=== PATIENT | male | born 1990 | race American Indian/Alaskan Native ===

== ENCOUNTER 2018-05-29 02:57 | Emergency (ER) | payer OTHER ==
[2018-05-29 03:27] VITALS: BP 133/73
[2018-05-29] MEDS ORDERED: MOTRIN ONE (05:27)
[2018-05-29] MEDS ORDERED: FLEXERIL ONE (05:27)
[2018-05-29] MEDS ORDERED: FLEXERIL PO ONE (05:31)
[2018-05-29] MEDS ORDERED: MOTRIN PO ONE (05:31)
[2018-05-29] MEDS ORDERED: TYLENOL PO ONE (07:46)
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
--- NOTE | 2018-05-29 09:45 | XRay Report ---
LUMBOSACRAL SPINE, 3 VIEWS: History: Back pain Findings: The vertebral bodies, disk spaces and posterior elements are intact. No compression deformity or malalignment. The SI joints are symmetric and unremarkable. Impression: 1. No evidence for acute injury to the lumbar spine.
--- NOTE | 2018-05-29 09:47 | XRay Report ---
RIGHT ANKLE, 3 views: History: right ankle pain. Bone mineralization is normal. No acute osseous abnormality or joint pathology is identified. The soft tissues are unremarkable. There is an approximate 1.8 cm cortical defect in the distal, anterior fibula just proximal to the ankle joint. This appears to represent an incidental fibrous cortical defect. Please correlate with the image and the patient. If point tenderness in this area is present, CT could be obtained. IMPRESSION: No definite acute injury. Probable fibrous cortical defect in the distal fibula. See above.
== END 2018-05-29 08:42 | disposition home or self-care (01) ==
LOC: ED 02:57
DX: S93.431A Sprain of tibiofibular ligament of right ankle, initial encounter (principal); V89.2XXA Person injured in unspecified motor-vehicle accident, traffic, initial encounter; Y93.89 Activity, other specified; Y92.89 Other specified places as the place of occurrence of the external cause; Y99.8 Other external cause status
CPT/HCPCS: 72100; 99283